=== PATIENT | female | born 1995 | race American Indian/Alaskan Native ===

== ENCOUNTER 2017-02-12 08:20 | Inpatient (IN) | payer OTHER ==
[~2017-02-12 08:20] MED LIST: DIPHENHYDRAMINE25 MG PO; OMEGA 3 FISH O1 EACH PO; ORTHO TRI-CYCL1 EACH PO; PRAZOSIN HCL1 MG PO; RISPERDAL1 MG PO; SERTRALINE HCL25 MG PO
[2017-02-12] MEDS ORDERED: PRENATAL TABLE1 EAC1 PO (10:51)
[2017-02-12] MEDS ORDERED: IRON325 M1 PO (10:51)
--- NOTE | 2017-02-12 17:13 | PR ---
[facility] [address] [facility] [place], [place] [address] Signed Progress Notes IP Datetime Report Generated by PRECIOUS: 02/12/2017 17:13 PROGRESS NOTES: [id number] Impression: Normal progression of labor Procedures: Sterile Vag Exam Plan: Continue present management Informed Consent Obtain: Vaginal Delivery; Risks, Benefits and Alternatives Discussed VITAL SIGNS: [id number] Vital Signs: Reviewed; Within Normal Limits EXAM: [id number] Dilatation: 5.0 Effacement: 90 Station: -1 Uterine Contractions: q 2 to 6 min MEMBRANES: [id number] Membrane Status: Ruptured Amniotic Fluid Color: Clear Comments: Progressing. Will continue. Fetus A: [id number] FHR Baseline: 130 Variability: Moderate 6-25bpm Accelerations: 15X15 Decelerations: Variable FHR Category: Category II Presentation: Vertex Comments on Fetus A: Overall reassuring but will require close observation. Fetus B: [id number] Signing Physician: Olviia Dozier MD CC: *Electronically Signed* 02/12/17 1713 OLIVIA DOZIER MD PATIENT NAME: CARRIE TIMMONS MASOOD PROGRESS NOTE DATE OF : 89 PHYSICIAN: OLIVIA DOZIER MD RPT #: [id number] REPORT IS CONFIDENTIAL AND NOT TO BE RELEASED WITHOUT AUTHORIZATION
--- NOTE | 2017-02-13 07:29 | PR ---
[facility] [address] [facility] [place], [place] [address] Signed PP Progress Notes Datetime Report Generated by PRECIOUS: 02/13/2017 07:29 SUBJECTIVE: [id number] Pain: Within normal limits Vital Signs: [id number] Vital Signs: Within Normal Limits EXAM: [id number] Cardiovascular: Not Done Respiratory: Not Done Abdomen/Uterus: Abnormal Lochia: Normal Vulva/Perineum: Not Done Breasts: Not Done CVA Tenderness: Not Done Extremities: Normal Incision: Not Applicable Progress: Normal Exam Comments: Fundus firm, NT @ U-1. H/H 9.7/29.6, WBC 8.3, plat 185k IMPRESSION/PLAN/PROCEDURES: [id number] Impression: Normal progression Plan: Continue present management Progress Notes: Doing well. She does not wish discharge today. Signing Physician: Olivia Dozier MD CC: *Electronically Signed* 02/13/17 0729 OLIVIA DOZIER MD PATIENT NAME: CARRIE TIMMONS PROGRESS NOTE DATE OF : 95 PHYSICIAN: OLIVIA DOZIER MD RPT #: [id number] REPORT IS CONFIDENTIAL AND NOT TO BE RELEASED WITHOUT AUTHORIZATION
--- NOTE | 2017-02-14 08:17 | PR ---
[facility] [address] [facility] [place], [place] [address] Signed PP Progress Notes Datetime Report Generated by CPN: 02/14/2017 08:17 SUBJECTIVE: [id number] Pain: Within normal limits Vital Signs: [id number] Vital Signs: Reviewed; Within Normal Limits EXAM: [id number] Cardiovascular: Not Done Respiratory: Not Done Abdomen/Uterus: Abnormal Lochia: Normal Vulva/Perineum: Not Done Breasts: Not Done CVA Tenderness: Not Done Extremities: Normal Incision: Not Applicable Progress: Normal Exam Comments: Fundus firm, NT @ U-1. IMPRESSION/PLAN/PROCEDURES: [id number] Impression: Normal progression Plan: Discharge Progress Notes: Doing well. She is ready for D/C. Signing Physician: Olivia Dozier MD CC: *Electronically Signed* 02/14/17816 OLIVIA DOZIER MD PATIENT NAME: CARRIE TIMMONS PROGRESS NOTE DATE OF : 95 PHYSICIAN: OLIVIA DOZIER MD RPT #: [id number] REPORT IS CONFIDENTIAL AND NOT TO BE RELEASED WITHOUT AUTHORIZATION
== END 2017-02-14 10:17 | disposition home or self-care (01) | DRG 775 ==
LOC: FBCO 08:20 → FBC 09:30
PROVIDERS: ADMIT Obstetrics & Gynecology
PROC: 10E0XZZ Delivery of Products of Conception, External Approach (ICD-10-PCS; principal; 2017-02-12)
PROC: 00HU33Z Insertion of Infusion Device into Spinal Canal, Percutaneous Approach (ICD-10-PCS; 2017-02-12)
PROC: 3E0R3CZ (ICD-10-PCS; 2017-02-12)
PROC: 3E0234Z Introduction of Serum, Toxoid and Vaccine into Muscle, Percutaneous Approach (ICD-10-PCS; 2017-02-13)
DX: O80 Encounter for full-term uncomplicated delivery (principal); Z3A.38 38 weeks gestation of pregnancy; Z37.0 Single live birth; Z23 Encounter for immunization
CPT/HCPCS: 01960; 36415; 59025; 84112; 85027; 99213; J2590; J7120

== ENCOUNTER 2021-10-02 21:37 | Emergency (ER) | payer OTHER ==
[~2021-10-02] VITALS: Ht 152.4 cm; Wt 69.8 kg
[~2021-10-02 21:37] MED LIST changes: +IRON325 M1 PO; +PRENATAL TABLE1 EAC1 PO
== END 2021-10-03 03:49 | disposition home or self-care (01) ==
LOC: ED 21:37
DX: O20.0 Threatened abortion (principal); Z3A.13 13 weeks gestation of pregnancy
CPT/HCPCS: 36415; 76801; 84702; 85025; 86900; 99284-25

== ENCOUNTER 2022-04-01 09:32 | Inpatient (IN) | payer OTHER ==
[~2022-04-01] VITALS: Ht 152.4 cm; Wt 81.6 kg
--- NOTE | 2022-04-02 08:10 | PR ---
[facility] [address] [facility] [place], [place] [address] Signed PP Progress Notes Datetime Report Generated by CPFartun: 04/02/2022 08:10 SUBJECTIVE: [id number] Pain: Within Normal Limits Vital Signs: [id number] Vital Signs: Reviewed; Within Normal Limits Cardiovascular: Not Done Respiratory: Not Done Abdomen/Uterus: Abnormal Lochia: Normal Vulva/Perineum: Not Done Breasts: Not Done CVA Tenderness: Not Done Extremities: Normal Incision: Not Applicable Progress: Abnormal Exam Comments: Fundus firm, NT @ U-1. H/H 05/12.2, WBC 10.9, plat 235k IMPRESSION/PLAN/PROCEDURES: [id number] Impression: Normal Progression; Difficulties Plan: Continue Present Management; Consult Procedures: None Progress Notes: Doing well but having some breast feeding issues. Will continue to work on breast feeding issues today with probable discharge in am. Signing Physician: Olivia Dozier MD Copies: ~ *Electronically Signed* 04/02/22809 OLIVIA DOZIER MD PATIENT NAME: CARRIE TIMMONS PROGRESS NOTE DATE OF : 95 PHYSICIAN: OLIVIA DOZIER MD RPT #: [id number] REPORT IS CONFIDENTIAL AND NOT TO BE RELEASED WITHOUT AUTHORIZATION
--- NOTE | 2022-04-03 07:25 | PR ---
[facility] [address] [facility] [place], [place] [address] Signed PP Progress Notes Datetime Report Generated by CPN: 04/03/2022 07:25 SUBJECTIVE: [id number] Pain: Within Normal Limits Vital Signs: [id number] Vital Signs: Reviewed; Within Normal Limits EXAM: Met Cardiovascular: Not Done Respiratory: Not Done Abdomen/Uterus: Abnormal Lochia: Normal Vulva/Perineum: Not Done Breasts: Not Done CVA Tenderness: Not Done Extremities: Normal Incision: Not Applicable Progress: Normal Exam Comments: Fundus firm, NT @ U-1. IMPRESSION/PLAN/PROCEDURES: [id number] Impression: Normal Progression Plan: Discharge Procedures: None Progress Notes: Doing well. She is ready for D/C. Signing Physician: Olivia Dozier MD Copies: ~ *Electronically Signed* 04/03/22724 OLIVIA DOZIER MD PATIENT NAME: CARRIE TIMMONS PROGRESS NOTE DATE OF : 95 PHYSICIAN: OLIVIA DOZIER MD RPT #: [id number] REPORT IS CONFIDENTIAL AND NOT TO BE RELEASED WITHOUT AUTHORIZATION
== END 2022-04-03 21:21 | disposition home or self-care (01) | DRG 807 ==
LOC: FBCO 09:32 → FBC 12:15
PROVIDERS: ADMIT Obstetrics & Gynecology; ATTEND Obstetrics & Gynecology
PROC: 10E0XZZ Delivery of Products of Conception, External Approach (ICD-10-PCS; principal; 2022-04-01)
PROC: 3E0R3BZ Introduction of Anesthetic Agent into Spinal Canal, Percutaneous Approach (ICD-10-PCS; 2022-04-01)
PROC: 00HU33Z Insertion of Infusion Device into Spinal Canal, Percutaneous Approach (ICD-10-PCS; 2022-04-01)
DX: O43.123 Velamentous insertion of umbilical cord, third trimester (principal); Z37.0 Single live birth; Z3A.39 39 weeks gestation of pregnancy; Z98.890 Other specified postprocedural states
CPT/HCPCS: 36415; 59025; 84112; 85027; 86850; 86900; 86901; 87502; A9270; C9803; G0463; J2590; J2795; J3010; J7121; U0003

== ENCOUNTER 2022-07-22 16:04 | Emergency (ER) | payer OTHER ==
[~2022-07-22] VITALS: Ht 152.4 cm; Wt 89.8 kg
[2022-07-22] MEDS ORDERED: AMOX TR-K CLV1 EAC1 PO (20:17)
== END 2022-07-22 20:30 | disposition home or self-care (01) ==
LOC: ED 16:04
DX: S01.541A Puncture wound with foreign body of lip, initial encounter (principal)
CPT/HCPCS: 99283